=== PATIENT | male | born 1930 | race Caucasian/White ===

== ENCOUNTER 2019-10-22 16:03 | Emergency (ER) | payer BC ==
--- NOTE | 2019-10-22 16:24 | PDOC ---
Rapid Medical Evaluation Time Seen by Provider: 10/22/19 16:19 Medical Evaluation: Allergies Allergy/AdvReac Type Severity Reaction Status Date / Time erythromycin base Allergy Verified 12/01/13 01:09 [Erythromycin Base] 10/22/19 16:20 CC: chest tightness and wheezing intermittently worse at night x 3 weeks, improves with alb neb, 2 weeks ago tested covid-. ekg WNL. cxr 2 views -. states hx bronchospasm Exam: vss, no wheezing, speaking full sentences Plan: Discharge Disposition - Diagnosis Chest tightness - Referrals Referrals: Priya Huff MD [Primary Care Provider] - - Patient Instructions - Post Discharge Activity
[2019-10-22 16:26] VITALS: BP 119/80; PULSE 68; TEMP 98.6; BMI 26.4
--- NOTE | 2019-10-22 17:00 | PDOC ---
History of Present Illness - General Chief Complaint: Chest Pain Stated Complaint: SENT BY PCP Time Seen by Provider: 10/22/19 16:19 - History of Present Illness Initial Comments: Raphael Carl is a 89 y/o male with PMH significant for valve insufficiency and asthma, presenting today with three weeks of chest pressure and tightness. Reports gradual onset three weeks ago. Improved with taking albuterol nebulizer at home. No pleuritic chest pain. Denies chest pain/shortness of breath. No dizziness. He went to see urgent care and presents to the ER because he feels like his symptoms have not improved, though they have not worsened. No abd pain/no leg swelling/no back pain/no dysuria/diarrhea, no nausea/vomiting. SocHx: denies etoh/tobacco/drug use Past History - Medical History Allergies/Adverse Reactions: Allergies Allergy/AdvReac Type Severity Reaction Status Date / Time erythromycin base Allergy Verified 10/22/19 16:27 [Erythromycin Base] Home Medications: Ambulatory Orders Cholecalciferol (Vitamin D3) [Vitamin D-3] 2,000 unit PO DAILY 12/01/13 Cyanocobalamin (Vitamin B-12) [B-12] 0 mcg PO DAILY 12/01/13 Asthma: Yes COPD: No - Immunization History Immunization Up to Date: Yes - Psycho-Social/Smoking History Smoking History: Former smoker Have you smoked in the past 12 months: No Information on smoking cessation initiated: No - Substance Abuse Hx (Audit-C & DAST Scrn) How often the patient has a drink containing alcohol: Never Score: In Men: 4 or > Positive; In Women: 3 or > Positive: 0 Screen Result (Pos requires Nsg. Audit-10AR): Negative In the last yr the pt used illegal drug/Rx for NonMed reason: No Score: Yes response is considered Positive: 0 Screen Result (Positive result requires Nsg. DAST-10): Negative Review of Systems - Review of Systems Comments:: GENERAL/CONSTITUTIONAL: No fever or chills. No weakness._ HEAD, EYES, EARS, NOSE AND THROAT: No change in vision. No change in hearing. No sore throat._ CARDIOVASCULAR: Reports chest pressure and tightness. No chest pain or shortness of breath_ RESPIRATORY: Denies cough, hemoptysis_ GASTROINTESTINAL: No nausea, vomiting, diarrhea or constipation._ GENITOURINARY: No dysuria, frequency, or change in urination._ MUSCULOSKELETAL: No joint or muscle swelling or pain. No neck or back pain._ SKIN: No rash_ NEUROLOGIC: No headache, vertigo, loss of consciousness, or change in strength/sensation._ ENDOCRINE: No increased thirst. No abnormal weight change_ HEMATOLOGIC/LYMPHATIC: No anemia, easy bleeding. ALLERGIC/IMMUNOLOGIC: No hives or skin allergy._ *Physical Exam - Vital Signs Last Vital Signs Temp Pulse Resp BP Pulse Ox 98.6 F 68 17 119/80 98 10/22/19 16:10 10/22/19 16:10 10/22/19 16:10 10/22/19 16:10 10/22/19 16:10 - Physical Exam GENERAL: Awake, alert, and oriented to person/place/time, in no acute distress_ HEAD: No signs of trauma, normocephalic, atraumatic _ EYES: PERRLA, EOMI, sclera anicteric, conjunctiva clear_ ENT: Hearing grossly normal, nares patent, oropharynx clear without exudates. No uvular deviation. Moist mucosa_ NECK: Normal ROM, supple, no lymphadenopathy, JVD, or masses_ LUNGS: No distress, speaks in full sentences, clear to auscultation bilaterally _ HEART: Regular rate and rhythm, normal S1 and S2, no murmurs appreciated, peripheral pulses normal and equal bilaterally._ ABDOMEN: Soft, nontender, normoactive bowel sounds. No guarding, no rebound. No masses_ EXTREMITIES: Normal inspection, Normal range of motion, no edema. No clubbing or cyanosis_ NEUROLOGICAL: Cranial nerves II through XII grossly intact. Normal speech, normal gait, no focal sensorimotor deficits _ SKIN: Warm, Dry, normal turgor, no rashes or lesions noted_ Medical Decision Making - Medical Decision Making 89M hx of asthma presenting with 3 weeks of chest tightness and pressure. -cbc, cmp -ekg, trop, cxr -duonebs -bnp 10/22/19 18:29 CXR shows cardiomegaly and possible mild congestion. EKG shows 64 bpm, NSR, LAFB, no ST elevation, QTc 414. Pt found to have eloped. Pt not in assigned bed. No staff member notified of his desire to leave. Multiple attempts to locate patient in the ED and surrounding hospital facility without success. Discharge - Discharge Information Problems reviewed: Yes Clinical Impression/Diagnosis: Chest tightness Condition: Unchanged/Unknown Disposition: ELOPED - Admission No - Follow up/Referral Referrals: Priya Huff MD [Primary Care Provider] - - Patient Discharge Instructions - Post Discharge Activity
[2019-10-22] MEDS ORDERED: ALBUTEROL SO4 2.5/IPRATROPIUM 0.5 INH SOL 3 ML VIAL.NEB. NEB ONE (17:45)
--- NOTE | 2019-10-22 18:25 | PDOC ---
Documentation entered by Kimberlyn Mckenzie SCRIBE, acting as scribe for Sallie Tate MD. Sallie Tate MD: This documentation has been prepared by the Amparo rey Sydney, SCRIBE, under my direction and personally reviewed by me in its entirety. I confirm that the documentation accurately reflects all work, treatment, procedures, and medical decision making performed by me. Attending Attestation - Resident Resident Name: John Hicks - ED Attending Attestation I have performed the following: I have examined & evaluated the patient, The case was reviewed & discussed with the resident, I agree w/resident's findings & plan, Exceptions are as noted - HPI HPI: 10/22/19 18:20 Patient is a 89 year old male with a significant past medical history of asthma, heart valve inconsistency who presents to the ED with three weeks progressively worsening chest discomfort and shortness of breath. Patient notes his symptoms worsen at night, but are alleviated with albuterol nebs. Allergies: Erythromycin - Physicial Exam PE: 10/22/19 18:[address] John Hicks's physical exam, Well appearing 89 yo male with chest tightness for several days - Medical Decision Making 10/22/19 18:22 this 89 yo male has an ekg nsr @ 64 bpm,LVH pt ELOPED Discharge - Discharge Information Problems reviewed: Yes Clinical Impression/Diagnosis: Chest tightness Condition: Good Disposition: ELOPED - Follow up/Referral Referrals: Priya Huff MD [Primary Care Provider] - - Patient Discharge Instructions - Post Discharge Activity
--- NOTE | 2019-10-23 10:13 | EKG ---
Test Reason : Blood Pressure : / mmHG Vent. Rate : 064 BPM Atrial Rate : 064 BPM P-R Int : 192 ms QRS Dur : 102 ms QT Int : 402 ms P-R-T Axes : 068 -46 049 degrees QTc Int : 414 ms NORMAL SINUS RHYTHM LEFT ANTERIOR FASCICULAR BLOCK MINIMAL VOLTAGE CRITERIA FOR LVH, MAY BE NORMAL VARIANT ABNORMAL ECG WHEN COMPARED WITH ECG OF 01-OCT-2006 12:31, NO SIGNIFICANT CHANGE WAS FOUND Confirmed by John Ospina MD ([id number]) on 10/23/2019 10:12:49 AM Referred By: Confirmed By:John Ospina MD
== END 2019-10-22 18:00 | disposition left against medical advice (07) ==
LOC: JER 16:03
PROC: 3E0F7GC Introduction of Other Therapeutic Substance into Respiratory Tract, Via Natural or Artificial Opening (ICD-10-PCS; principal; 2019-10-22)
DX: R07.9 Chest pain, unspecified (principal)
CPT/HCPCS: 71045-TC-FY; 93005; 93010; 94640; 99284-25